=== PATIENT | male | born 1980 | race Asian ===

== ENCOUNTER 2019-01-28 12:18 | Emergency (ER) | payer OTHER ==
[~2019-01-28] VITALS: Ht 167.6 cm; Wt 61.1 kg
[2019-01-28] MEDS ORDERED: SODIUM CHLORIDE 0.9% 1,000 ML IV ONE (12:51)
[2019-01-28] MEDS ORDERED: ONDANSETRON HCL 4MG/2ML INJ IV STA (12:51)
[2019-01-28] MEDS ORDERED: MECLIZINE 25MG TABLET PO ONE (13:00)
[2019-01-28 13:58] LABS: BASOPHILS % 0.6 % (0.0-2.0); HEMATOCRIT. 48.2 % (42.0-52.0); HEMOGLOBIN. 16.3 g/dL (14.0-18.0); LYMPHOCYTES % 19.5 % (20.0-50.0); MEAN CORPUSCULAR HEMOGLOBIN 29.4 pg (28.0-32.0); MEAN CORPUSCULAR VOLUME 86.8 fL (80.0-94.0); MEAN PLATELET VOLUME 12.5 fl (7.4-10.4); NEUTROPHILS % 73.9 % (40.0-76.0); PLATELET 177 x1000/uL (130-400); RED BLOOD CELL COUNT 5.55 mill/uL (4.7-6.1); RED CELL DISTRIBUTION WIDTH 12.9 % (11.6-14.6)
[2019-01-28 14:03] LABS: CHLORIDE 101 mEq/L (98-107)
[2019-01-28 14:30] VITALS: BP 128/80
[2019-01-28] MEDS ORDERED: METFORMIN HCL 500MG TABLET PO ONE (14:45)
[2019-01-28] MEDS ORDERED: AMLODIPINE 2.5MG TABLET PO ONE (14:45)
== END 2019-01-28 15:00 | disposition home or self-care (01) ==
LOC: ER 12:18
DX: R42 Dizziness and giddiness (principal); E11.65 Type 2 diabetes mellitus with hyperglycemia; I10 Essential (primary) hypertension; F17.200 Nicotine dependence, unspecified, uncomplicated
CPT/HCPCS: 36415; 80053; 85025; 93005; 96361; 96374; 99284; J2405; J7030; J8597

== ENCOUNTER 2019-03-09 23:32 | Emergency (ER) | payer OTHER ==
[~2019-03-09] VITALS: Ht 167.6 cm; Wt 61.0 kg
[2019-03-10] MEDS ORDERED: SODIUM CHLORIDE 0.9% 1,000 ML IV ONE (00:18)
[2019-03-10 00:33] LABS: BASOPHILS % 0.6 % (0.0-2.0); EOSINOPHILS % 2.8 % (0.0-5.0); HEMATOCRIT. 44.5 % (42.0-52.0); HEMOGLOBIN. 15.4 g/dL (14.0-18.0); LYMPHOCYTES % 32.4 % (20.0-50.0); MEAN CORPUSCULAR VOLUME 86.6 fL (80.0-94.0); MEAN PLATELET VOLUME 9.8 fl (7.4-10.4); MONOCYTES % 7.2 % (2.0-8.0); PLATELET 223 x1000/uL (130-400); RED BLOOD CELL COUNT 5.13 mill/uL (4.7-6.1); RED CELL DISTRIBUTION WIDTH 13.1 % (11.6-14.6)
[2019-03-10 00:36] LABS: CHLORIDE 102 mEq/L (98-107)
[2019-03-10 02:07] LABS: *AMPHETAMINES SCREEN URINE NEGATIVE (NEGATIVE); *BARBITURATES SCREEN URINE NEGATIVE (NEGATIVE); *BENZODIAZEPINES SCREEN URINE NEGATIVE (NEGATIVE); *COCAINE SCREEN URINE NEGATIVE (NEGATIVE); METHADONE URINE SCREEN NEGATIVE (NEGATIVE); OPIATES URINE SCREEN NEGATIVE (NEGATIVE)
[2019-03-10 02:09] LABS: CANNABINOID URINE SCREEN NEGATIVE (NEGATIVE)
[2019-03-10 02:39] LABS: PHENCYCLIDINE URINE SCREEN NEGATIVE (NEGATIVE)
[2019-03-10] MEDS ORDERED: IOHEXOL-350 100 ML BOTTLE ONE (03:18)
[2019-03-10 05:00] VITALS: BP 158/98
== END 2019-03-10 05:34 | disposition home or self-care (01) ==
LOC: ER 23:32
DX: R06.02 Shortness of breath (principal); E11.9 Type 2 diabetes mellitus without complications; R42 Dizziness and giddiness; I10 Essential (primary) hypertension
CPT/HCPCS: 36415; 71045; 71275; 80053; 80305; 83880; 84484; 85025; 85379; 96360; 96361; 99284; J7030; Q9967

== ENCOUNTER 2019-03-26 20:36 | Inpatient (IN) | payer OTHER ==
[~2019-03-26] VITALS: Ht 167.6 cm; Wt 60.8 kg
[2019-03-27 00:44] LABS: BASOPHILS % 0.4 % (0.0-2.0); EOSINOPHILS % 1.5 % (0.0-5.0); HEMATOCRIT. 39.8 % (42.0-52.0); HEMOGLOBIN. 13.7 g/dL (14.0-18.0); LYMPHOCYTES % 29.7 % (20.0-50.0); MEAN CORPUSCULAR HEMOGLOBIN 29.9 pg (28.0-32.0); MEAN CORPUSCULAR VOLUME 86.7 fL (80.0-94.0); MEAN PLATELET VOLUME 9.4 fl (7.4-10.4); NEUTROPHILS % 61.4 % (40.0-76.0); PLATELET 227 x1000/uL (130-400); RED BLOOD CELL COUNT 4.59 mill/uL (4.7-6.1); RED CELL DISTRIBUTION WIDTH 13.1 % (11.6-14.6)
[2019-03-27 00:49] LABS: CHLORIDE 103 mEq/L (98-107)
[2019-03-27] MEDS ORDERED: ASPIRIN 81MG TABLET PO ONE (04:00)
[2019-03-27] MEDS ORDERED: NITROGLYCERIN OINT 1GM/INCH UDPKT TD ONE (04:00)
[2019-03-27 08:30] VITALS: BP 102/47
[2019-03-27] MEDS ORDERED: KETOROLAC 30MG/ML VIAL IV PRN (08:45)
[2019-03-27] MEDS: OMEPRAZOLE 20MG CAPSULE EXTENDED RELEASE PO SCH (10:19)
[2019-03-27] MEDS: CEFTRIAXONE 1 G PREMIX 50 ML IV SCH (10:19)
[2019-03-27] MEDS: MORPHINE SULFATE 2 MG/ML CPJ (NOT FOR IM USE) IV PRN ×2 (10:20→18:43)
[2019-03-27 10:32] LABS: LDL CHOLESTEROL 93 mg/dL (5-100)
[2019-03-27 10:34] LABS: HDL CHOLESTEROL 28 mg/dL (40-59)
[2019-03-27 10:35] LABS: T4 FREE 1.36 ng/dL (0.76-1.46)
[2019-03-27] MEDS ORDERED: PANT40TA4 PO (11:01)
[2019-03-27] MEDS ORDERED: HYDR-459 PO (11:01)
[2019-03-27] MEDS ORDERED: MECL12.584 PO (11:01)
[2019-03-27] MEDS ORDERED: CHOL500051 PO (11:01)
[2019-03-27] MEDS ORDERED: METF-414 PO (11:01)
[2019-03-27 12:00] VITALS: BP 95/53
[2019-03-27 16:00] VITALS: BP 97/66
[2019-03-27 16:57] LABS: CLARITY URINE CLEAR (CLEAR); COLOR URINE YELLOW (YELLOW); KETONES URINE NEGATIVE (NEGATIVE); LEUKOCYTE ESTERASE URINE 1+ (NEGATIVE); NITRITE URINE NEGATIVE (NEGATIVE); OCCULT BLOOD URINE NEGATIVE (NEGATIVE); PROTEIN URINE NEGATIVE (NEGATIVE); SPECIFIC GRAVITY URINE 1.015 (1.005-1.030); UROBILINOGEN URINE 0.2 E.U./dL (0.2-1.0)
[2019-03-27 17:06] LABS: *AMPHETAMINES SCREEN URINE NEGATIVE (NEGATIVE); *BARBITURATES SCREEN URINE NEGATIVE (NEGATIVE); *BENZODIAZEPINES SCREEN URINE NEGATIVE (NEGATIVE); *COCAINE SCREEN URINE NEGATIVE (NEGATIVE); METHADONE URINE SCREEN NEGATIVE (NEGATIVE); OPIATES URINE SCREEN NEGATIVE (NEGATIVE)
[2019-03-27 17:07] LABS: CANNABINOID URINE SCREEN NEGATIVE (NEGATIVE); PHENCYCLIDINE URINE SCREEN NEGATIVE (NEGATIVE)
[2019-03-27 18:15] LABS: CREATINE KINASE 64 IU/L (39-308); CREATINE KINASE MB FRACTION < 1.0 ng/mL (0.5-3.6)
[2019-03-27] MEDS: METFORMIN HCL 500MG TABLET PO SCH (18:43)
[2019-03-27 20:00] VITALS: BP 105/67
[2019-03-27] MEDS ORDERED: IOHEXOL-350 100 ML BOTTLE ONE (22:20)
[2019-03-28] VITALS: BP 99/63
[2019-03-28 00:38] LABS: CREATINE KINASE 59 IU/L (39-308)
[2019-03-28 00:39] LABS: CREATINE KINASE MB FRACTION < 1.0 ng/mL (0.5-3.6)
[2019-03-28] MEDS: OMEPRAZOLE 20MG CAPSULE EXTENDED RELEASE PO SCH (06:38)
[2019-03-28] MEDS: METFORMIN HCL 500MG TABLET PO SCH (06:39)
[2019-03-28] MEDS ORDERED: REGADENOSON 0.4 MG/5 ML IV ONE ×2 (07:15→11:17)
[2019-03-28 08:00] VITALS: BP 97/66
[2019-03-28] MEDS ORDERED: DEXTROSE 50% WATER 50ML SYRINGE IV PRN (08:15)
[2019-03-28] MEDS: INSULIN LISPRO 100 UNITS/ML SUBCUT SCH ×2 (08:19→12:15)
[2019-03-28] MEDS: BLOOD SUGAR DIAGNOSTIC STRIP TEST SCH ×2 (08:19→12:34)
[2019-03-28] MEDS ORDERED: ASPIRIN 81MG TABLET PO SCH (09:00)
[2019-03-28] MEDS: CEFTRIAXONE 1 G PREMIX 50 ML IV SCH (09:11)
[2019-03-28 10:57] LABS: BASOPHILS % 0.5 % (0.0-2.0); EOSINOPHILS % 1.4 % (0.0-5.0); HEMOGLOBIN. 14.8 g/dL (14.0-18.0); LYMPHOCYTES % 20.6 % (20.0-50.0); MEAN CORPUSCULAR HEMOGLOBIN 29.7 pg (28.0-32.0); MEAN CORPUSCULAR VOLUME 88.5 fL (80.0-94.0); MEAN PLATELET VOLUME 9.9 fl (7.4-10.4); MONOCYTES % 7.1 % (2.0-8.0); NEUTROPHILS % 70.4 % (40.0-76.0); PLATELET 228 x1000/uL (130-400); RED BLOOD CELL COUNT 4.97 mill/uL (4.7-6.1); RED CELL DISTRIBUTION WIDTH 12.7 % (11.6-14.6)
[2019-03-28 11:31] LABS: CHLORIDE 104 mEq/L (98-107)
[2019-03-28 11:44] LABS: CREATINE KINASE 51 IU/L (39-308)
[2019-03-28 11:45] LABS: CREATINE KINASE MB FRACTION < 1.0 ng/mL (0.5-3.6)
[2019-03-28 12:00] VITALS: BP 110/67
[2019-03-28] MEDS: MORPHINE SULFATE 2 MG/ML CPJ (NOT FOR IM USE) IV PRN (14:46)
[2019-03-28 15:49] VITALS: BP 99/61
[2019-03-28 16:00] VITALS: BP 99/67
== END 2019-03-28 16:45 | disposition home or self-care (01) | DRG 74 ==
LOC: ER 20:36 → 5WST 03-27 04:01 → EDBEDREQTM 03-27 04:02 → EDBEDREQ 03-27 04:02 → ENRESERV 03-27 07:26
PROVIDERS: ADMIT Internal Medicine; ATTEND Internal Medicine
DX: G90.8 Other disorders of autonomic nervous system (principal); R07.9 Chest pain, unspecified; D72.829 Elevated white blood cell count, unspecified; K76.0 Fatty (change of) liver, not elsewhere classified; E78.5 Hyperlipidemia, unspecified; I10 Essential (primary) hypertension; E11.9 Type 2 diabetes mellitus without complications; F17.210 Nicotine dependence, cigarettes, uncomplicated; Z79.84 Long term (current) use of oral hypoglycemic drugs
CPT/HCPCS: 36415; 71045; 71275; 78452; 80048; 80061; 80305; 81003; 82550; 82553; 82962; 83036; 83880; 84145; 84439; 84443; 84484; 85379; 93005; 93017; 93306; 93970; 99285; A9500; J0696; J2270; J2785; Q9967